=== PATIENT | female | born 1985 | race African-American/Black ===

== ENCOUNTER 2023-02-13 08:03 | Emergency (ER) | payer SELFPAY ==
[~2023-02-13] VITALS: Ht 160 cm; Wt 130.0 kg
[2023-02-13] MEDS ORDERED: ACETAMINOPHEN 325MG TABLET PO ONE (09:00)
[2023-02-13 09:50] VITALS: BP 117/76
== END 2023-02-13 09:51 | disposition home or self-care (01) ==
LOC: ER 08:03
DX: S00.93XA Contusion of unspecified part of head, initial encounter (principal); S60.212A Contusion of left wrist, initial encounter; W19.XXXA Unspecified fall, initial encounter; Y93.89 Activity, other specified; Y92.89 Other specified places as the place of occurrence of the external cause; Y99.8 Other external cause status
CPT/HCPCS: 73110; 81025; 99283